=== PATIENT | male | born 2000 | race Two or more races ===

== ENCOUNTER 2023-06-06 07:20 | Emergency (ER) | payer OTHER ==
[~2023-06-06] VITALS: Ht 170.2 cm; Wt 63.5 kg
[2023-06-06] MEDS ORDERED: MEDROLPACK PO (11:11)
== END 2023-06-06 11:24 | disposition home or self-care (01) ==
LOC: ER 07:20
PROVIDERS: General Practice
DX: R10.33 Periumbilical pain (principal); Z88.6 Allergy status to analgesic agent

== ENCOUNTER 2024-12-06 10:30 | Emergency (ER) | payer OTHER ==
[~2024-12-06] VITALS: Ht 170.2 cm; Wt 65.8 kg
[~2024-12-06 10:30] MED LIST: MEDROLPACK PO
[2024-12-06] MEDS ORDERED: LEVOFLOXACIN750 MG PO (13:13)
[2024-12-06] MEDS ORDERED: TRAMADOL HCL 50 MG TABLET PO ONE (13:15)
[2024-12-06] MEDS ORDERED: CEFTRIAXONE SODIUM 2,000 MG VIAL IM ONE (13:15)
[2024-12-06] MEDS ORDERED: LIDOCAINE HCL 1% 10ML VIAL ONE (13:34)
[2024-12-06] MEDS ORDERED: CEFTRIAXONE SODIUM 1,000 MG VIAL ONE (13:35)
== END 2024-12-06 13:48 | disposition home or self-care (01) ==
LOC: ER 10:33
DX: S60.561A Insect bite (nonvenomous) of right hand, initial encounter (principal); W57.XXXA Bitten or stung by nonvenomous insect and other nonvenomous arthropods, initial encounter; Y93.89 Activity, other specified; Y92.89 Other specified places as the place of occurrence of the external cause; Y99.9 Unspecified external cause status; L03.113 Cellulitis of right upper limb; L02.511 Cutaneous abscess of right hand

== ENCOUNTER → 2024-12-06 13:59 | Outpatient (CLI) | payer OTHER ==
[~2024-12-06 13:59] MED LIST changes: +LEVOFLOXACIN750 MG PO
== END | disposition home or self-care (01) ==
LOC: LAB 13:59
PROVIDERS: ATTEND Specialist
DX: L02.91 Cutaneous abscess, unspecified (principal)

== ENCOUNTER 2024-12-10 09:18 | Inpatient (IN) | payer OTHER ==
[~2024-12-10] VITALS: Ht 170.2 cm; Wt 65.8 kg
[2024-12-10] MEDS ORDERED: VANCOMYCIN HCL 1,000 MG VIAL IV ONE (09:45)
[2024-12-10] MEDS ORDERED: PIPERACILLIN/TAZOBACTAM SODIUM 3.375 GM VIAL IV ONE (09:45)
[2024-12-10] MEDS ORDERED: FAMOtidine 10 MG/ML (4ML VIAL) IV ONE (09:45)
[2024-12-10] MEDS ORDERED: FAMOTIDINE/PF 20 MG/2 ML VIAL ONE (09:53)
[2024-12-10] MEDS ORDERED: VANCOMYCIN HCL 1,000 MG VIAL ONE ×2 (09:53→15:36)
[2024-12-10] MEDS ORDERED: VANCOMYCIN HCL 1,000 MG VIAL IV SCH (11:05)
[2024-12-10] MEDS ORDERED: FAMOTIDINE/PF 20 MG in 0.9 % SODIUM CHLORIDE 8 ML IV PUSH SCH (11:05)
[2024-12-10 11:12] LABS: BILIRUBIN TOTAL 0.52 mg/dL (0.3-1.2); CALCIUM 9.5 mg/dL (8.5-10.1); CREATININE SERUM 0.94 mg/dL (0.70-1.30); GFR 97.78; GLOBULINA 3.9 G/DL (2.4-3.5); POTASSIUM 3.88 mEq/L (3.5-5.1); TOTAL PROTEIN 7.9 gm/dL (6.4-8.2)
[2024-12-10] MEDS ORDERED: ACETAMINOPHEN 325 MG TABLET PO PRN (11:15)
[2024-12-10] MEDS ORDERED: MEPERIDINE HCL/PF 50 MG/ML VIAL IM PRN (11:15)
[2024-12-10] MEDS ORDERED: 0.9 % SODIUM CHLORIDE 1,000 ML IV SCH (11:15)
[2024-12-10 11:16] LABS: HEMATOCRIT 45.6 % (39.0-48.0); HEMOGLOBIN 15.2 g/dL (13-16.00); MEAN CELL VOLUME 90.3 fL (80.0-100.00); MEAN CORPUSCULAR HEMOGLOBIN 30.1 pg (27.00-32.0); MEAN CORPUSCULAR HGB CONC 33.4 g/dl (32.0-36.0); PLATELET COUNT 277 K/uL (150-450); RED BLOOD COUNT 5.05 M/uL (4.00-6.00); RED CELL DISTRIBUTION WIDTH 13.3 % (11.5-14.5)
[2024-12-10 11:22] VITALS: BP 122/78
[2024-12-10 11:25] LABS: PARTIAL THROMBOPLASTIN TIME 31.4 SECONDS (22.0-34.0); PROTHROMBIN TIME 10.9 SECONDS (9.0-11.5)
[2024-12-10] MEDS ORDERED: ACETAMINOPHEN 500 MG GEL..CAP PO PRN (11:30)
[2024-12-10 12:38] LABS: PH,URINE 5.5 (5.0-8.0); URINE APPEARANCE Clear; URINE BILIRRUBIN Negative (NEGATIVE); URINE BLOOD Negative; URINE COLOR Yellow; URINE GLUCOSE Negative (NEGATIVE); URINE KETONE Negative (NEGATIVE); URINE LEUKOCYTE Negative; URINE NITRATE Negative; URINE PROTEIN Negative (NEGATIVE); URINE UROBILINOGEN 0.2 E.U./dl
[2024-12-10 12:41] LABS: URINE RBC 11.1 uL (0.0-20.8)
[2024-12-10 13:00] LABS: URINE BACTERIA 0 uL (0.0-1933); URINE EPITHELIAL CELLS 1.2 uL (0.0-38.8); URINE WBC 1.2 uL (0.0-23.2)
[2024-12-10 13:01] LABS: URINE CRYSTALS FEW /HPF
[2024-12-10 15:25] VITALS: BP 106/86; O2SAT 100
[2024-12-10 18:00] VITALS: BP 125/71; O2SAT 99
[2024-12-10] MEDS ORDERED: DIPHTH,PERTUSS(ACELL),TET VAC 0.5 ML SYRINGE IM NR (18:00)
[2024-12-11 01:30] VITALS: BP 127/67; O2SAT 98
[2024-12-11 09:32] VITALS: BP 110/61; O2SAT 100
[2024-12-11] MEDS ORDERED: MUPIROCIN 22 GM OINT..GM TUBE NASAL SCH (17:00)
[2024-12-11] MEDS ORDERED: CHLORHEXIDINE GLUCONATE 120 ML BOTTLE TOP SCH (17:00)
[2024-12-11 17:12] VITALS: BP 120/70; O2SAT 97
[2024-12-12 01:15] VITALS: BP 96/60
[2024-12-12 09:03] VITALS: BP 120/70
[2024-12-12 16:44] VITALS: BP 112/81; O2SAT 97
[2024-12-12] MEDS ORDERED: FAMOtidine 20 MG TABLET PO SCH (21:00)
[2024-12-13 00:52] VITALS: BP 110/60; O2SAT 97
[2024-12-13 06:48] LABS: HEMATOCRIT 42.2 % (39.0-48.0); HEMOGLOBIN 14.6 g/dL (13-16.00); MEAN CELL VOLUME 88.6 fL (80.0-100.00); MEAN CORPUSCULAR HEMOGLOBIN 30.6 pg (27.00-32.0); MEAN CORPUSCULAR HGB CONC 34.6 g/dl (32.0-36.0); PLATELET COUNT 279 K/uL (150-450); RED BLOOD COUNT 4.76 M/uL (4.00-6.00)
[2024-12-13 07:27] LABS: ALBUMIN 3.4 gm/dL (3.4-5.0); ALKALINE PHOSPHATASE 75 U/L (50-136); ALT/SGPT 23 U/L (12-78); ANION GAP 10 (10.0-20.0); AST/SGOT 21 U/L (15-37); BILIRUBIN TOTAL 0.48 mg/dL (0.3-1.2); BLOOD UREA NITROGEN 12 mg/dL (7-18); BUN CREA RATIO 13 (7.0-25.0); CALCIUM 9.1 mg/dL (8.5-10.1); CARBON DIOXIDE 28 mEq/L (21-32); CHLORIDE 110 mmol/L (98-107); CREATININE SERUM 0.93 mg/dL (0.70-1.30); GLUCOSE FASTING 83 mg/dL (65-100); OSMOLALITY SERUM 286 MOSM/KG (275-295); PHOSPHOROUS 3.8 mg/dL (2.5-4.9); POTASSIUM 4.43 mEq/L (3.5-5.1); SODIUM 144 mmol/L (136-145); TOTAL PROTEIN 6.4 gm/dL (6.4-8.2)
[2024-12-13 07:35] LABS: C-REACTIVE PROTEIN < 0.29 MG/DL (0.00-0.29)
[2024-12-13 09:04] VITALS: BP 100/61; O2SAT 97
[2024-12-13] MEDS ORDERED: BACTRIM DS TAB1 EACH PO (09:14)
[2024-12-13] MEDS ORDERED: INTESTINEX680 M1 PO (09:17)
== END 2024-12-13 10:30 | disposition home or self-care (01) | DRG 603 ==
LOC: ER 09:20 → SEC-K 12:27 → MEDI 12:27
PROVIDERS: General Practice; Internal Medicine Infectious Disease; ADMIT Internal Medicine; ATTEND Internal Medicine
DX: L03.113 Cellulitis of right upper limb (principal); W57.XXXA Bitten or stung by nonvenomous insect and other nonvenomous arthropods, initial encounter; A49.02 Methicillin resistant Staphylococcus aureus infection, unspecified site

== ENCOUNTER 2025-06-05 09:03 | Emergency (ER) | payer OTHER ==
[~2025-06-05] VITALS: Ht 170.2 cm; Wt 68.0 kg
[~2025-06-05 09:03] MED LIST changes: +BACTRIM DS TAB1 EACH PO; +INTESTINEX680 M1 PO
[2025-06-05 09:19] VITALS: BP 129/88; O2SAT 99
[2025-06-05] MEDS ORDERED: ONDANSETRON HCL 2 MG/ML VIAL IV STA (09:35)
[2025-06-05] MEDS ORDERED: 0.9 % SODIUM CHLORIDE 1,000 ML IV STA (09:35)
[2025-06-05] MEDS ORDERED: FAMOTIDINE/PF 20 MG in 0.9 % SODIUM CHLORIDE 8 ML IV PUSH STA (09:35)
[2025-06-05 11:05] LABS: BUN CREA RATIO 9.0 (7.0-25.0); CREATININE SERUM 1.0 mg/dL (0.70-1.30); GFR 90.32; GLUCOSE FASTING 91.0 mg/dL (65-100); OSMOLALITY SERUM 283.0 MOSM/KG (275-295)
[2025-06-05 11:16] LABS: BASO % 0.5 % (0.1-1.2); EOS # 0.03 (0.04-0.54); EOS % 0.3 % (0.7-7.0); LYMPH # 1.94 (1.18-3.74); LYMPH % 22.3 % (19.3-53.1); MEAN PLATELET VOLUME 10.10 fl (9.4-12.4); MONO # 0.53 (0.24-0.82); MONO % 6.1 % (4.7-12.5); NEUT # 6.13 (1.56-6.13); NEUT % 70.3 % (34.0-71.1); RED CELL DISTRIBUTION WIDTH 11.9 % (11.6-14.4)
[2025-06-05 11:47] LABS: URINE APPEARANCE Clear; URINE BILIRRUBIN Negative (NEGATIVE); URINE BLOOD Negative; URINE COLOR Yellow; URINE GLUCOSE Negative (NEGATIVE); URINE KETONE Trace (NEGATIVE); URINE LEUKOCYTE Negative; URINE NITRATE Negative; URINE PROTEIN Negative (NEGATIVE); URINE UROBILINOGEN 0.2 E.U./dl
[2025-06-05 11:55] LABS: URINE BACTERIA 0 uL (0.0-1933); URINE CAST 0.00 uL (0.0-1.40); URINE EPITHELIAL CELLS 0.1 uL (0.0-38.8); URINE RBC 0.8 uL (0.0-20.8); URINE WBC 1.3 uL (0.0-23.2)
== END 2025-06-05 14:45 | disposition home or self-care (01) ==
LOC: ER 09:25
PROVIDERS: Emergency Medicine
DX: K52.89 Other specified noninfective gastroenteritis and colitis (principal); Z88.6 Allergy status to analgesic agent